=== PATIENT | female | born 1950 | race Caucasian/White ===

== ENCOUNTER 2017-05-08 01:07 | Inpatient (IN) ==
[2017-05-08 02:02] LABS: MANUAL DIFF NEEDED? NO
[2017-05-08 02:06] LABS: BASO% 0.1 % (0.0-0.8); EOS# 0.05 X1000 (0.0-0.7); EOS% 0.3 % (0.0-10.0); HEMATOCRIT 26.3 % (37.0-47.0); HEMOGLOBIN 8.8 g/dL (12.0-16.0); IMM GRAN# 0.02 X1000 (0.0-0.04); IMM GRAN% 0.1 % (0.0-0.5); LYMPH# 2.07 X1000 (1.2-3.4); LYMPH% 13.7 % (20.5-51.1); MCH 28.8 PG (27-31); MCHC 33.5 g/dL (33-37); MCV 85.9 FL (81-99); MONO# 0.92 X1000 (0.11-0.59); MONO% 6.1 % (1.7-9.3); MPV 10.5 FL (7.4-10.4); NEUT% 79.7 % (42.2-75.2); PLT 319 X1000 (130-400); RBC 3.06 XMIL (4.2-5.4)
[2017-05-08 02:31] LABS: ALBUMIN 3.8 g/dL (3.5-5.0); POTASSIUM 3.5 mmol/L (3.5-5.1); TOTAL BILIRUBIN 0.35 mg/dL (0.20-1.00); TOTAL PROTEIN 5.9 g/dL (6.3-8.3)
[2017-05-08] MEDS ORDERED: NS 1,000 ML IV ONE ×2 (02:43→02:53)
--- NOTE | 2017-05-08 04:11 | PROVIDER DOCUMENTATION ---
This chart was entered by Evelyn Mosley Scribe, acting as scribe for Vik Adams MD. HPI-Syncope/Dizziness - General Chief Complaint: Near Syncope Stated Complaint: SYNCOPE EPISODE WITH DIZZINESS Time Seen by Provider: 05/08/17 01:19 Source: patient Allergies/Adverse Reactions: Patient Allergies Allergy/AdvReac Type Severity Reaction Status Date / Time Penicillins Allergy FLUSHING Verified 05/08/17 01:25 Sulfa (Sulfonamide AdvReac ITCHING Verified 05/08/17 01:25 Antibiotics) Home Medications: Home Medication List Medication Instructions Recorded Confirmed Last Taken Type Ibuprofen 300 mg PO TID 05/08/17 05/08/17 05/06/17 History Metoprolol [Lopressor] 25 mg PO DAILY 05/08/17 05/08/17 05/07/17 History Oxycodone HCl/Acetaminophen 1 each PO TID 05/08/17 05/08/17 05/07/17 History [Oxycodone-Acetaminophen 5-325] - History of Present Illness-Syncope/Dizzy Nature of Presenting Problem: Pt is a 66 year old female who came to the ED with a cc of near syncope. Pt reports she has severe back pain and takes oxycodone. Pt has a problem with abdominal pain and constipation. Pt is nauseous. Pt has a hx of anemia. Pt blood pressure is low. Pt has sweat spells at night. Pt reports last night she passed out a couple of times in the bathroom. Prior Episodes: reports: no prior history Onset/Duration: reports: 24 hours ago Timing: reports: still present Position/Activity at time of episode: reports: standing, activity Symptoms prior to episode: reports: lightheaded, visual disturbance Context: reports: lost consciousness, felt faint, almost passed out Loss of Consciousness: unsure Location of injury. (If syncope resulted in an injury.): reports: none Current Symptoms: reports: nausea, dizzy, pale, blurred vision, lightheaded Recently Seen Here or By Another Healthcare Provider: No - Dizziness Severity in ED: reports: moderate Dizziness Related Current/Associated Symptoms: reports: weakness, lightheaded, dizzy, pale, blurred vision, sense of falling, unable to sit up Any recent trauma/injury?: reports: none Modifying Factors: improves with: changing position, standing position Patient usually:: reports: walks without assistance Review of Systems - Adult - REVIEW OF SYSTEMS - ADULT Constitutional: denies: chills, fever Eyes: reports: decreased vision, blurred vision. denies: discharge, redness Ears, Nose, Mouth & Throat: denies: nose pain, loose teeth Cardiovascular: reports: no symptoms reported Respiratory: denies: chronic cough, shortness of breath Gastrointestinal: reports: abdominal pain, constipation, nausea. denies: diarrhea, difficulty swallowing, vomiting Genitourinary: reports: no symptoms reported Musculoskeletal: reports: no symptoms reported Integumentary: reports: no symptoms reported Neurological: reports: dizziness/vertigo, loss of balance, syncope. denies: paresthesia, seizure Psychiatric: reports: no symptoms reported Endocrine: reports: no symptoms reported Hematologic/Lymphatic: reports: no symptoms reported Allergic/Immunologic: reports: no symptoms reported All Other Systems: Reviewed and Negative Past History - Adult - PAST MEDICAL HISTORY-ADULT Review of Records: reports: Nursing Assessment Review Major Childhood Illnesses: reports: denies history Cardiovascular: reports: HTN Respiratory: reports: denies history Gastrointestinal: reports: denies history Obstetrical/Gynecological: reports: denies history Genitourinary: reports: denies history Musculoskeletal: reports: denies history Neurological: reports: denies history Endocrine/Immune: reports: denies history Other Conditions: reports: denies history - IMMUNIZATION STATUS Childhood Immunizations: See Nurse Assessment Flu Vaccine: See Nurse Assessment - FAMILY HISTORY Family History: reviewed, not pertinent Physical Exam-General - CONSTITUTIONAL General Appearance: alert, mild distress - EYES Eyes: PERRL/EOMI, pink conjunctivae - HEAD, EARS, NOSE, MOUTH & THROAT HENMT: normocephalic/atraumatic, moist mucous membranes - NECK Neck: non-tender, full range of motion - RESPIRATORY Respiratory: chest non-tender, lungs clear - CARDIOVASCULAR Cardiovascular: normal peripheral pulses, regular rate, rhythm, systolic murmur , other (hypotensive) - GASTROINTESTINAL (ABDOMEN) Abdominal Exam: normal bowel sounds, soft - MUSCULOSKELETAL Back Exam: normal inspection, no CVA tenderness Extremity: normal range of motion. negative: normal gait - SKIN Integumentary: diaphoresis, pallor - NEUROLOGIC Neurologic: grossly normal - PSYCHIATRIC Psych/Mental Status: normal mood/affect, normal thought content, normal thought process, oriented x 3 Progress - PLAN OF CARE/RESULTS Progress/Plan/Lab Results: Vital Signs - 8 hr 05/08/17 01:18 05/08/17 03:51 Temperature 97.9 F Pulse Rate 85 80 Respiratory Rate 13 14 Blood Pressure 101/76 149/68 O2 Sat by Pulse Oximetry 97 98 Laboratory Results - last 24 hr 05/08/17 05/08/17 01:30 01:30 WBC 15.07 H RBC 3.06 L Hgb 8.8 L Hct 26.3 L MCV 85.9 MCH 28.8 MCHC 33.5 RDW Std Deviation 12.9 Plt Count 319 MPV 10.5 H Immature Gran % (Auto) 0.1 Neut % (Auto) 79.7 H Lymph % (Auto) 13.7 L [place] % (Auto) 6.1 Eos % (Auto) 0.3 Baso % (Auto) 0.1 Immature Gran # (Auto) 0.02 Neut # (Auto) 11.99 H Lymph # (Auto) 2.07 [place] # (Auto) 0.92 H Eos # (Auto) 0.05 Baso # (Auto) 0.02 Sodium 140 Potassium 3.5 Chloride 97 L Carbon Dioxide 28 Anion Gap 15 BUN 54 H Creatinine 1.0 H Estimated GFR/1.73 m2 55 BUN/Creatinine Ratio 54 Glucose 129 H Calculated Osmolality 296 Calcium 10.0 Total Bilirubin 0.35 AST 18 ALT 11 Alkaline Phosphatase 32 Total Protein 5.9 L Albumin 3.8 Globulin 2.1 Albumin/Globulin Ratio 1.8 Orders Category Date Time Status CBC WITH DIFF [HEME] Stat Lab 05/08/17 01:30 Completed CMP [COMPREHENSIVE METABOLIC PANEL] [CHEM] Stat Lab 05/08/17 01:30 Completed TYPE & SCREEN [BBK] Stat Lab 05/08/17 02:59 Ordered 0.9% Sodium Chloride Inj [Ns] 1,000 ml Med 05/08/17 02:43 Discontinued IV 999 mls/hr 0.9% Sodium Chloride Inj [Ns] 1,000 ml Med 05/08/17 02:53 Discontinued IV 999 mls/hr EKG [EKG] Stat Ther 05/08/17 01:07 Ordered Much improved following bolus of saline. BP is up to 160/ 70 now. Result Diagrams: 05/08/17 01:30 05/08/17 01:30 - EKG 1 Time of EKG reading by physician:: 01:16 EKG Read and Signed by:: Vik Adams EKG Interpretation (*Must complete 3 of following elements*): Abnormal Rate: 84 Rhythm: NSR QRS: LBB - CONSULTS/PCP/HOSPITALIST Notification Time Discussed: 04:10 Consult Disposition: Admit Departure - Departure Date of Disposition Decision: 05/08/17 Time of Disposition Decision: 04:09 DIAGNOSIS: Hypovolemic shock Anemia Qualifiers: Anemia type: other cause Disposition: ADMITTED INPATIENT 09 Certified Medical Emergency: Emergent Condition: Fair - Critical Care Note This patient required my direct & personal management of CC.: Yes Total Time (mins): 30 Critical Care Statement: This patient required my direct personal management to treat or rule out processes, the absence of which, could potentiallly result in sudden, clinically significant life or limb threatening deterioration. This chart was documented by the indicated scribe, (Evelyn oMsley Scribe) and accurately reflects the services I performed and decisions made by me, Vik Adams MD, as attested by the provider's signature.
--- NOTE | 2017-05-08 05:29 | EKG Report ---
Test Performed on : 05/08/2017 01:16:54 AM Test Reason : SYNCOPE Blood Pressure : / mmHG Vent. Rate : 084 BPM Atrial Rate : 084 BPM P-R Int : 152 ms QRS Dur : 126 ms QT Int : 410 ms P-R-T Axes : 064 053 130 degrees QTc Int : 484 ms Normal sinus rhythm. Left bundle branch block Abnormal ECG No previous ECGs available Unconfirmed Result
[2017-05-08] MEDS: PROTONIX IV SCH ×2 (06:28→20:37)
[2017-05-08] MEDS: SODIUM CHLORIDE 0.9% INJ SCH ×2 (06:28→20:37)
[2017-05-08] MEDS: NS 1,000 ML IV SCH ×3 (06:49→20:37)
[2017-05-08] MEDS: ZOFRAN IV PRN (06:59)
--- NOTE | 2017-05-08 06:59 | HISTORY AND PHYSICAL ---
PRIMARY CARE PROVIDER: A physician in [place], unsure of the name. CHIEF COMPLAINT: Weakness and near syncope with dizziness. HISTORY OF PRESENT ILLNESS: This is a 66-year-old female who came to the emergency room with a complaint of weakness for over 1 month and near syncope. She reports she has severe back pain and takes oxycodone. She has also had abdominal pain and recent constipation over the last 5 days. The patient has had nausea as well. She has a history of iron deficiency anemia. The patient's blood pressure was mildly low on arrival to the emergency room, but after fluid bolus in the emergency room, it returned to normal. She did say that the night before she did "pass out" for an unknown duration of time. At any rate, a laboratory panel was completed, which showed a hemoglobin and hematocrit of 8.8 and 26.3. She also had a mildly elevated white blood cell count of 15.7, as well as a mild elevation in her renal function with a creatinine of 1, although a baseline creatinine is not known. Her GFR was mildly decreased at 55. She will be admitted to the medical floor for further evaluation and treatment. PAST MEDICAL HISTORY: 1. Hypertension. 2. Chronic back pain. PAST SURGICAL HISTORY: sections x2. FAMILY HISTORY: A history of diabetes mellitus, CVA, unspecified cancer, and hypertension in first-degree relatives. SOCIAL HISTORY: She lives alone in [place]. Denies tobacco or illicit drug use or abuse. Uses alcohol rarely. She was having dry needling and was told to drink red wine reportedly for the pain. ALLERGIES: Penicillin and sulfa, penicillin causing flushing and sulfa causing itching. HOME MEDICATIONS: 1. Ibuprofen 300 mg p.o. t.i.d. 2. Metoprolol 25 mg p.o. b.i.d. 3. Percocet 5 mg p.o. t.i.d. REVIEW OF SYSTEMS: A 14-point review of systems conducted with the patient with the pertinent positives listed above in the HPI. All other systems reviewed and found to be negative. PHYSICAL EXAMINATION: VITAL SIGNS: Temperature 97.9 degrees, pulse 80, respirations 14, blood pressure 149/68, oxygen saturation 98% on room air. GENERAL: A pleasant 66-year-old female, lying in the ER stretcher. Answers all questions appropriately. No acute distress. HEENT: Head is atraumatic, normocephalic. Pupils equal, round, react to light. Extraocular eye movements intact. Sclerae are anicteric. Conjunctivae are pale. Oral mucosa is dry. NECK: Supple. No JVD. No thyromegaly. Trachea is midline. CARDIAC: S1 and S2 appreciated. No murmurs, gallops, rubs. LUNGS: Clear to auscultation bilaterally. No rhonchi, wheezes, or rales. Symmetrical rise and fall with respirations. ABDOMEN: Soft, nondistended, diffusely tender. Bowel sounds hypoactive in all 4 quadrants. No pulsatile mass. No organomegaly. EXTREMITIES: No clubbing, cyanosis, or edema. She has 2+ pedal pulses bilaterally. GENITOURINARY: The patient voids, otherwise deferred. NEUROLOGICAL: Alert and oriented x3. Cranial nerves 2 through 12 grossly intact. DIAGNOSTIC DATA: CT with oral contrast and IV contrast of the abdomen is pending. LABORATORY DATA: WBC 15.07, hemoglobin 8.8, hematocrit 26.3, platelet count 319,000. Sodium 140, potassium 3.5, chloride 97, carbon dioxide 28, BUN 54, creatinine 1, glucose 129. Urinalysis is pending. ASSESSMENT AND PLAN: 1. Symptomatic anemia. The patient has had iron deficiency anemia in the past she states, but has not had a problem with it. We will check an anemia panel. We will type and screen the patient; however, she has not had a level where it would be necessary to transfuse. We do not have a baseline hemoglobin and hematocrit. We will check hemoglobin and hematocrit every 6 hours and transfuse if necessary. 2. Acute kidney injury. This is likely secondary to fluid volume depletion. Normal saline bolus was given in the emergency room. We will continue normal saline at 125. 3. Fluid volume depletion. As noted above, we will give fluid bolus. 4. Leukocytosis. This is possibly reactive; however, a urinalysis is pending, as well as a CT with intravenous and oral contrast of the abdomen and pelvis. 5. Constipation. We will give MiraLAX 17 grams by mouth twice daily. 6. Questionable upper gastrointestinal bleed. The patient has not noted any dark stools. However, she does have chronic back pain and does take Percocet daily, as well as ibuprofen 3 times daily. We will consult Dr. Linda Soto to evaluate the patient. 7. Further recommendations per the patient's clinical course. Dictated by SONJA Haynes for Saul Vyas MD cc: SONJA Haynes MD
[2017-05-08 09:39] LABS: IRON SATURATION 29 %; TIBC 245 ug/dL; TOTAL IRON 72 ug/dL (49-151); UNBOUND IRON 173 ug/dL (112-346)
--- NOTE | 2017-05-08 09:40 | Diag Imaging Result Doc PS360 ---
ABDOMEN/PELVIS W/CONTRAST - 05/08/2017 INDICATION: abd pain TECHNIQUE: A CT dose reduction protocol was used. COMPARISON: 04/21/2014 FINDINGS: The lung bases are clear and the heart size is normal. There is a small right renal cyst. The liver, gallbladder, pancreas, spleen, and adrenals are normal. Urinary bladder, uterus, and rectum are normal. No bowel obstruction or inflammation. Urinary bladder, uterus, and rectum are normal. There are moderate degenerative changes of the spine. No acute or suspicious bony lesion. IMPRESSION: No acute disease. Electronically signed by Robe Ferrara 05/08/2017 9:38 AM
[2017-05-08] MEDS: LOPRESSOR PO SCH ×2 (09:42→20:37)
[2017-05-08] MEDS: MIRALAX PO SCH ×2 (09:42→20:38)
[2017-05-08 09:52] LABS: HEMATOCRIT 21.9 % (37.0-47.0); HEMOGLOBIN 7.2 g/dL (12.0-16.0)
[2017-05-08] MEDS: PERCOCET-5 PO SCH ×3 (10:50→20:41)
[2017-05-08 15:13] LABS: HEMATOCRIT 21.3 % (37.0-47.0); HEMOGLOBIN 7.1 g/dL (12.0-16.0)
--- NOTE | 2017-05-08 17:56 | CONSULTATION ---
DATE OF CONSULTATION: 05/08/2017 REASON FOR REFERRAL: Anemia. HISTORY OF PRESENT ILLNESS: This is a 66-year-old, white female, who reported to the emergency room with complaints of weakness over the last month, and a syncopal episode. She reports issues with abdominal pain and recent constipation over the last week. She has also had some nausea and reported an episode of vomiting that was dark in color. She reports history of chronic back pain and takes oxycodone on a regular basis. She also reports taking ibuprofen on a regular basis. She did not notice any black stools or blood in her stool, but when I came in to see her for consultation, I noticed an incontinent stool that was black. On admission her hemoglobin was 8.8, and hematocrit 26.3, MCV 85.9. Repeat hemoglobin and hematocrit this morning was 7.2 and 21.9. The patient reports having an EGD and colonoscopy when she lived in [place], I am not sure when those were done. She denies chest pain or shortness of breath. She does report some abdominal pain and recent constipation. She had also had an episode of nausea and vomiting prior to her admission. PAST MEDICAL HISTORY: Hypertension, chronic back pain. PAST SURGICAL HISTORY: Wrist surgery, right wrist x2. x2. ALLERGIES: Penicillin, causing flushing. Sulfa, causing itching. MEDICATIONS: Ibuprofen 300 mg 3 times a day. Oxycodone 5/325 three times a day. Lopressor 25 mg daily. SOCIAL HISTORY: Denies tobacco use. She reports occasional alcohol use. She is . She has 2 children. The patient reports having dry needling, and was told that she could have red wine on those days to help with the pain. REVIEW OF SYSTEMS: Per HPI. PHYSICAL EXAM: Vital Signs: Temperature 98.0 degrees, pulse 74, respirations 18, blood pressure 127/56. General: Patient is awake and alert. No acute distress. HEENT: Normocephalic, atraumatic. Pupils equal, round, reactive to light. Sclerae are nonicteric. Cardiovascular: Regular rate and rhythm. Respiratory: Lung sounds clear bilaterally. Abdomen : Soft, nondistended, positive bowel sounds. Nontender with palpation at present time. Extremities: No lower extremity edema noted. Pedal pulses positive bilaterally. Neurologic: Cranial nerves 2-12 grossly intact. Patient is awake, alert, and oriented to person, place, and time. DIAGNOSTIC RESULTS: Laboratory: Hematology; white count 15.07, hemoglobin 7.2 , hematocrit 21.9, MCV 85.9, platelets 319,000. Chemistry; sodium 140, potassium 3.5, chloride 97, CO2 28, BUN 54, creatinine 1.0, glucose 129, iron 72, TIBC 245, percent saturation 29, ferritin 29, total bilirubin 0.35, AST 18, ALT 11, folate 14.5, TSH 0.53. Abdominal pelvis CT scan showed no acute disease. There was a small right renal cyst. The liver, gallbladder, pancreas, spleen and adrenals are normal. Urinary bladder, uterus and rectum are normal. No bowel obstruction or inflammation noted. Moderate degenerative changes of the spine were noted. ASSESSMENT AND PLAN: 1. Anemia. 2. Syncopal episode. 3. Leukocytosis. 4. Constipation. 5. Symptomatic anemia. 6. Chronic NSAID use. PLAN: Continue supportive care. Continue to monitor hemoglobin and hematocrit , and we will transfuse packed red blood cells. We will plan for EGD. I have discussed the procedure along with benefits and risks of the procedure and patient voices understanding and wishes to proceed. I have discussed this case with Dr. Gallegos. Thank you for this consultation. Dictated by SONJA Ortiz for Donny Gallegos MD cc: SONJA Reinoso MD [facility]
[2017-05-09 02:49] LABS: HEMATOCRIT 25.2 % (37.0-47.0); HEMOGLOBIN 8.6 g/dL (12.0-16.0)
[2017-05-09] MEDS: NS 1,000 ML IV SCH ×4 (04:26→22:38)
[2017-05-09] MEDS: PERCOCET-5 PO SCH ×5 (06:27→16:14)
[2017-05-09 07:16] LABS: BASO% 0.4 % (0.0-0.8); EOS# 0.26 X1000 (0.0-0.7); EOS% 3.4 % (0.0-10.0); HEMATOCRIT 27.5 % (37.0-47.0); HEMOGLOBIN 9.4 g/dL (12.0-16.0); LYMPH# 2.49 X1000 (1.2-3.4); LYMPH% 32.3 % (20.5-51.1); MANUAL DIFF NEEDED? NO; MCH 29.3 PG (27-31); MCHC 34.2 g/dL (33-37); MCV 85.7 FL (81-99); MONO# 0.38 X1000 (0.11-0.59); MONO% 4.9 % (1.7-9.3); MPV 10.2 FL (7.4-10.4); PLT 195 X1000 (130-400); RBC 3.21 XMIL (4.2-5.4)
[2017-05-09 07:44] LABS: AGAP 11; BUN 14 mg/dL (8-22); CHLORIDE 107 mmol/L (98-107); COSMO 280; POTASSIUM 3.3 mmol/L (3.5-5.1); SODIUM 140 mmol/L (136-145); TCO2 22 mmol/L (25-35)
[2017-05-09] MEDS ORDERED: XYLOCAINE-MPF 2% ONE (09:18)
[2017-05-09] MEDS ORDERED: DIPRIVAN 1% ONE (09:18)
[2017-05-09 09:46] LABS: URINE MICRO REVIEW NEEDED? NO; URINE SOURCE CLEAN CATCH
[2017-05-09 09:49] LABS: BILIRUBIN URINE NEGATIVE (NEGATIVE); BLOOD URINE MODERATE (NEGATIVE); COLOR YELLOW; GLUCOSE URINE NEGATIVE (NEGATIVE); LEUKOCYTES URINE MODERATE (NEGATIVE); NITRITE URINE NEGATIVE (NEGATIVE); PH URINE 7.5; PROTEIN URINE NEGATIVE (NEGATIVE); SP GRAVITY URINE 1.016; TURBIDITY URINE CLEAR (CLEAR); UROBILINOGEN URINE NORMAL (NORMAL)
[2017-05-09 09:50] LABS: UR EPITHELIAL CELLS <10 /HPF (<10); URINE BACTERIA NEGATIVE /HPF; URINE CULTURE NEEDED? YES; URINE RBC <10 /HPF (<10)
[2017-05-09] MEDS: PROTONIX IV SCH ×2 (10:49→21:14)
[2017-05-09] MEDS: KLOR-CON PO ONE ×2 (10:49→15:37)
[2017-05-09] MEDS: MIRALAX PO SCH ×2 (10:50→21:15)
[2017-05-09] MEDS: LOPRESSOR PO SCH ×3 (10:50→21:15)
[2017-05-09] MEDS ORDERED: BENADRYL IV ONE (13:30)
--- NOTE | 2017-05-09 14:35 | PROGRESS NOTE ---
DATE: 05/09/2017 SUBJECTIVE: This patient just came back from EGD. As per the patient, she is feeling some kind of weakness sensation/numbness sensation inside her mouth and the left side of the mouth and cheek and face. She told me that she has multiple allergies to different medications and different kind of food allergies as well. I have ordered Benadryl x1 for this. I do believe that this is related to the endoscopic medication and/or her food. OBJECTIVE: Vital Signs: Temperature 97.6 degrees, pulse 65, respiratory rate 18, blood pressure 154/60. HEENT: Head normocephalic. No trauma. PERRLA. Neck: Supple. No JVD. No masses. Central trachea. Chest: Clear to auscultation. No wheezing. No rales. Cardiovascular: RRR. Mild systolic murmur. Abdomen: Soft, nontender, nondistended. No hepatosplenomegaly. Chest: Clear to auscultation. No wheezing. No rales. Extremities: No edema. No clubbing. No cyanosis. Neurological: The patient is alert and oriented x3. No focal deficits. LABORATORY: WBC 7.7, hemoglobin 8.6, hematocrit 25.2, platelet 195. Sodium 140, potassium 3.3, chloride 107, bicarbonate 22, BUN 14, creatinine 0.6 glucose 101, calcium 8. ASSESSMENT AND PLAN: 1. Symptomatic anemia. This patient has had iron deficiency anemia in the past. When she came in the hemoglobin was 8.8, but then dropped to 7.1. She had an upper endoscopy done today pending results and recommendations.. She does not have any kind of symptoms related with anemia at this moment. 2. Acute kidney injury. Resolved. 3. Fluid volume depletion. Continue with intravenous fluids. 4. Leukocytosis likely reactive. At this moment is normal. 5. Constipation. Continue with the same management. cc: Brijesh Macario MD
--- NOTE | 2017-05-09 18:25 | OPERATIVE NOTE ---
PROCEDURE DATE: 05/09/2017 PROCEDURES: EGD and biopsy. PREOPERATIVE DIAGNOSIS: Anemia. POSTOPERATIVE DIAGNOSES: 1. Esophageal ulcer. 2. Gastritis. 3. Pyloric channel ulcer. HISTORY: This is a 66-year-old white female admitted to hospital with weakness and was found to be anemic. Endoscopy was done to identify the etiology and treat accordingly. DESCRIPTION OF PROCEDURE: Informed consent obtained from the patient. Procedure, risks, benefits, alternatives were explained in layman's terms. She understood. All the pertinent questions answered. Patient was brought to the endoscopy unit and was premedicated as per Anesthesia. After adequate sedation, while she was lying in left lateral position, the gastroscope was introduced into the posterior pharynx and advanced under direct vision into the esophagus. Esophagus in the upper middle part was normal. Distal esophagus surrounding the GE junction showed evidence of esophageal ulcer. Esophagitis was LA grade C. It appeared to be peptic in origin. No AVM, masses or varices were seen. The scope was then passed through the esophagus through the stomach. Stomach was examined both straight and retroflexed view, which revealed normal cardia, fundus. However, in the body around the incisura, there were linear erosions seen. No stigmata of recent bleed seen there. The scope was advanced into the pylorus where I saw a deep, clean based, punched-out ulcer which was about 8 mm to about 1 cm in size. I did not see any stigmata of recent bleed. I was able to advance the scope through the pylorus into the 2nd portion of duodenum. I did not see any ulcer AVM or masses in the duodenum. Multiple biopsies were obtained from the ulcer edges. The scope was withdrawn. Patient tolerated procedure well. No complications noted. Patient was then transferred to the recovery area in a stable condition. IMPRESSION: 1. Pyloric channel ulcer biopsied. 2. Erosive gastritis. 3. Esophageal ulcers/esophagitis, LA grade C. RECOMMENDATION: I will start her on proton pump inhibitor, Prilosec 40 mg p.o. b.i.d. for a month and carried down to once a day before meals. Follow up the biopsy report. If H. pylori is positive, we will treat. Stop or avoid any NSAIDs if possible. Follow up with me in the office after discharge. She will need repeat endoscopy in about 3-4 months for surveillance of her gastric ulcer seen today. I have explained the findings and the patient she understands, all the pertinent questions answered. She has never had a colonoscopy and would need a screening colonoscopy. cc: Donny Gallegos MD
[2017-05-09] MEDS ORDERED: CHLORASEPTIC SPRAY MT ONE (22:48)
[2017-05-10] MEDS: ZOFRAN IV PRN ×2 (06:26)
[2017-05-10] MEDS: NS 1,000 ML IV SCH (06:26)
[2017-05-10] MEDS ORDERED: KLOR-CON PO ONE (07:50)
[2017-05-10 08:47] LABS: MANUAL DIFF NEEDED? NO
[2017-05-10 09:03] LABS: BASO% 0.6 % (0.0-0.8); EOS# 0.31 X1000 (0.0-0.7); EOS% 6.5 % (0.0-10.0); HEMOGLOBIN 8.3 g/dL (12.0-16.0); LYMPH# 1.44 X1000 (1.2-3.4); MCH 28.7 PG (27-31); MCHC 33.2 g/dL (33-37); MCV 86.5 FL (81-99); MONO# 0.33 X1000 (0.11-0.59); MONO% 6.9 % (1.7-9.3); MPV 10.3 FL (7.4-10.4); PLT 197 X1000 (130-400); RBC 2.89 XMIL (4.2-5.4)
[2017-05-10 09:26] LABS: AGAP 11; BUN 5 mg/dL (8-22); CALCIUM 7.6 mg/dL (8.8-10.2); CHLORIDE 110 mmol/L (98-107); COSMO 282; POTASSIUM 3.2 mmol/L (3.5-5.1); SODIUM 143 mmol/L (136-145); TCO2 22 mmol/L (25-35)
[2017-05-10] MEDS: PERCOCET-5 PO SCH ×2 (09:38→14:42)
[2017-05-10] MEDS: LOPRESSOR PO SCH (09:40)
[2017-05-10] MEDS: MIRALAX PO SCH (09:41)
--- NOTE | 2017-05-10 12:07 | PROGRESS NOTE ---
DATE: 05/10/2017 SUBJECTIVE: The patient reports that her throat is sore. She states she had problems with her throat closing up after the procedure. I do not see any problems noted on the operative note during the procedure. I have discussed with the patient the findings of the EGD , which showed an esophageal ulcer, gastritis, and pyloric channel ulcer. She has been started on a PPI, Prilosec 40 mg twice a day. Recommend twice-a-day PPI for a month. We will follow up on the biopsy reports. If Helicobacter pylori is positive, we will treat. Also recommended the patient to avoid NSAIDs. OBJECTIVE: Vital Signs: Temperature 97.8 degrees, pulse 62, respirations 20, blood pressure 145/52. LABORATORY: Hematology: White count 4.80, hemoglobin 8.3, hematocrit 25.0, MCV 86.5. Chemistry: Sodium 143, potassium 3.2, chloride 110, CO2 of 22, BUN 5, creatinine 0.6, glucose 103. ASSESSMENT: 1. Anemia. 2. Esophageal ulcer. 3. Gastritis. 4. Pyloric channel ulcer. 5. Nonsteroidal anti-inflammatory drug use. PLAN: Continue PPI twice daily for 1 month. After that, we can decrease to daily. Dr. Ledezma has added Carafate. Plan for discharge today per Dr. Ledezma. Will follow biopsy results and if Helicobacter pylori is positive, we will treat. Recommended patient to avoid NSAIDs. Follow up in the office in 2-3 weeks after discharge. She will need repeat EGD in about 3-4 months for surveillance of gastric ulcer to verify healing of the ulcer. I have explained the procedure findings. Advised patient to follow a soft diet for now. We will continue to follow during her hospital course and follow with her in the office once discharged. Dictated by SONJA Ortiz for Donny Gallegos MD cc: SONJA Reinoso MD [facility]
[2017-05-10] MEDS ORDERED: CARAFATE PO SCH (13:00)
[2017-05-10 15:52] VITALS: BP 145/52
[2017-05-10] MEDS ORDERED: PRILOSEC PO SCH (21:00)
[2017-05-11] MEDS ORDERED: PROTONIX PO SCH (07:00)
--- NOTE | 2017-05-11 14:28 | DISCHARGE SUMMARY ---
ADMISSION DATE: 05/08/2017 DISCHARGE DATE: 05/10/2017 DISCHARGE DIAGNOSIS: 1. Pyloric channel ulcer, erosive gastritis, esophageal ulcers/esophagitis LA grade C. 2. Symptomatic anemia. 3. Acute kidney injury, resolved. 4. Fluid volume depletion, resolved. 5. Leukocytosis, resolved. 6. Constipation. CONSULT: Gastroenterology Department. PROCEDURES: Upper endoscopy dated 05/09/2017. IMPRESSION: 1. Pyloric channel ulcer that was biopsied. 2. Erosive gastritis. 3. Esophageal ulcers/esophagitis LA grade C. HOSPITAL COURSE: A 66-year-old female with a past medical history of hypertension and chronic back pain who came to the emergency room with a chief complaint of 1 month of weakness and also a near syncope. She states that for her back pain she takes oxycodone and she goes to a pain clinic. She also had abdominal pain and recent constipation over the last 5 days, the patient had nausea as well, and history of anemia. At the moment of the admission hemoglobin was 8.8, hematocrit 26.3, and also mildly elevated white blood cells of 15.7. This patient was admitted to the medical floor. Gastroenterology Department was consulted and they did an upper endoscopy that showed esophageal ulcer, gastritis, and pyloric channel ulcer as well. This patient states that for the back pain also she has been taking a lot of ibuprofen, and we recommended to stop this. Also she needs to repeat endoscopy in about 3-4 months for surveillance of the gastric ulcer. She was placed on PPIs and also Carafate. This patient was improving on a daily basis, she was tolerating p.o. and ambulating, she did really good with physical therapy. This is why we decided to discharge this patient with followup by her primary care physician in 1 week. Also follow up with Dr. Gallegos in 2-3 weeks after discharge. DISCHARGE PHYSICAL EXAMINATION: Vital signs: Temperature 97.7 degrees, pulse 61, respiratory rate 20, blood pressure 155/80, O2 saturation 100% on room air. HEENT: Head normocephalic. No trauma. PERRLA. Neck: Supple. No JVD. No masses. Central trachea. Chest: Clear to auscultation. No wheezing. No rales. Cardiovascular: RRR. Abdomen: Soft, nontender, nondistended. No hepatosplenomegaly. Extremities: No edema. No clubbing. No cyanosis. Neurological: The patient is alert and oriented x3. No focal deficits. LABORATORY: WBC 4.8, hemoglobin 8.3, hematocrit 25, platelets 197,000. Sodium 143, potassium 3.2, chloride 110, bicarbonate 22, BUN 5, creatinine 0.6, glucose 103, calcium 7.6. DISCHARGE MEDICATION: Lopressor 25 mg p.o. twice daily, omeprazole 40 mg p.o. twice daily for 1 month and then daily, oxycodone acetaminophen 5/325 one tablet p.o. 3 times daily, MiraLAX 17 g p.o. twice daily, Carafate 1 g p.o. 4 times a day for 6 weeks. FOLLOWUP: Followup by Dr. Gallegos 3-4 weeks, and followup by her primary care doctor in 1 week. cc: Brijesh Macario MD
== END 2017-05-10 16:15 | disposition home or self-care (01) ==
LOC: ED 01:07 → SUATTDRO 05:10 → 3N 05:10
PROVIDERS: ATTEND Internal Medicine